=== PATIENT | male | born 1985 | race Caucasian/White ===

== ENCOUNTER 2017-02-10 07:24 | Emergency (ER) | payer OTHER ==
[~2017-02-10] VITALS: Ht 175.3 cm; Wt 86.2 kg
[~2017-02-10 07:24] MED LIST: ACETAMINOPHEN-1 EAC1 PO; ALEVE220 MG; ALEVE220 MG PO; AUGMENTIN 875-1 EACH PO; CARISOPRODOL 3350 MG PO; ETODOLAC500 MG PO; FLEXERIL PO; HYDROCODON-ACE1 EAC7 PO; HYDROCODONE-AP1 EAC6 PO; IBUPROFEN 400400 M1 PO; IBUPROFEN 600600 M1 PO; IBUPROFEN 800800 MG PO; MEDROLDOSEPACK PO; NAPROSYN500 MG PO; NOHOMEMEDICATIONS; NORCO 5-325 TA1 EACH PO; PREDNISONE 10 M10 MG PO; TRAMADOL 50 MG50 MG PO; ULTRAM 50MG TAB50 MG PO
[2017-02-10 07:25] VITALS: BP 149/88
[2017-02-10] MEDS ORDERED: NORCO 5-325 TA1 EACH PO (08:14)
== END 2017-02-10 08:22 | disposition home or self-care (01) ==
LOC: ER 07:24
DX: S46.211A Strain of muscle, fascia and tendon of other parts of biceps, right arm, initial encounter (principal); G89.29 Other chronic pain; Z98.890 Other specified postprocedural states; X58.XXXA Exposure to other specified factors, initial encounter; Y93.64 Activity, baseball; Y92.39 Other specified sports and athletic area as the place of occurrence of the external cause; Y99.8 Other external cause status

== ENCOUNTER 2017-03-29 14:10 | Emergency (ER) | payer OTHER ==
[~2017-03-29] VITALS: Ht 175.3 cm; Wt 86.2 kg
[2017-03-29 14:44] VITALS: BP 119/82
[2017-03-29] MEDS ORDERED: MOBIC15 MG PO (15:09)
== END 2017-03-29 15:15 | disposition home or self-care (01) ==
LOC: ER 14:10
DX: G89.18 Other acute postprocedural pain (principal); M25.511 Pain in right shoulder; G89.29 Other chronic pain; M54.9 Dorsalgia, unspecified; Z98.890 Other specified postprocedural states